=== PATIENT | female | born 1985 | race Two or more races ===

== ENCOUNTER 2020-02-07 22:09 | Emergency (ER) | payer OTHER ==
[~2020-02-07] VITALS: Ht 160 cm; Wt 59.0 kg
[2020-02-07] MEDS ORDERED: ONDANSETRON HCL 4 MG/2 ML VIAL IV ONE (23:45)
[2020-02-07] MEDS ORDERED: HYDROmorphone HCL 2 MG/ML VL IV ONE (23:45)
[2020-02-07] MEDS ORDERED: SODIUM CHLORIDE 0.9% 1,000 ML IVB ONE (23:45)
[2020-02-08 00:07] LABS: Basophils # (auto) 0.1 10 ^3/uL (0-0.2); Basophils % (auto) 0.7 % (0.0-2.0); Eosinophils # (auto) 0.1 10 ^3/uL (0-0.8); Eosinophils % (auto) 0.5 % (0.0-7.0); Hematocrit 43.6 % (36.0-46.0); Hemoglobin 14.6 g/dL (12.2-16.2); Lymphocytes # (auto) 1.5 10 ^3/uL (0.4-5.4); Lymphocytes % (auto) 16.1 % (10.0-50.0); Mean Corpuscular Hemoglobin 30.3 pg (28.0-32.0); Mean Corpuscular Hgb Conc. 33.4 g/dL (32.0-36.0); Mean Corpuscular Volume 90.8 fL (80.0-100.0); Monocytes # (auto) 0.4 10 ^3/uL (0-1.3); Monocytes % (auto) 3.8 % (0.0-12.0); Neutrophils # (auto) 7.3 10 ^3/uL (1.6-8.6); Neutrophils % (auto) 78.9 % (37.0-80.0); Nucleated Red Blood Cells % 0.1 %; Platelet Count (auto) 301 10^3/uL (140-450); Red Cell Distribution Width 12.3 % (11.8-14.3); White Blood Cell 9.2 10^3/uL (4.4-10.8)
[2020-02-08 00:14] LABS: Albumin 4.4 g/dL (3.4-5.0); Calcium 9.3 mg/dL (8.5-10.1); INR 1.02 (0.9-1.15); Partial Thromboplastin Time 28.5 sec (23.0-31.2); Potassium 3.6 mmol/L (3.5-5.1)
[2020-02-08 00:18] LABS: Bilirubin, Total 1.6 mg/dL (0.2-1.0); Total Protein 8.2 g/dL (6.4-8.2)
[2020-02-08 01:26] VITALS: BP 95/52
== END 2020-02-08 01:08 | disposition home or self-care (01) ==
LOC: ER 22:14
DX: N83.201 Unspecified ovarian cyst, right side (principal); N83.202 Unspecified ovarian cyst, left side
CPT/HCPCS: 36415; 74176; 80053; 82150; 83605; 83690; 83735; 84702; 85025; 85610; 85730; 93005; 96361; 96374; 96375; 99285; J1170; J2405; J7030